=== PATIENT | female | born 1975 | race Caucasian/White ===

== ENCOUNTER 2020-05-08 02:40 | Emergency (ER) | payer MEDICAID ==
[~2020-05-08] VITALS: Ht 167.6 cm; Wt 68.0 kg
[2020-05-08 02:56] VITALS: BP_SYST 137
--- NOTE | 2020-05-08 03:09 | NUR ---
PT CAME TO ER FOR WORSENING PAIN TO RIGHT BREAST OVER THE LAST 4 DAYS. PRESENTS WITH LARGE SWOLLEN REDDENED AREA TO RIGHT BREAST ABOUT 6CM ACROSS. HOT TO TOUCH. INTACT, NO DRAINIAGE. STATES SIMILAR PROBLEM HAS HAPPENED 3 TIMES IN THE PAST APPROX 6 MOS APART. NO MEDICAL HISTORY, HYSTERCTOMY 2 YEARS AGO. AAOX3, V/S STABLE
--- NOTE | 2020-05-08 03:09 | NUR ---
Patient to ER bed 3 to gown for evaluation. Side rails up.
--- NOTE | 2020-05-08 03:23 | NUR ---
REPORT GIVEN TO TRISTEN FISHER FOR CONTINUING CARE
--- NOTE | 2020-05-08 03:25 | NUR ---
ALYCIA Epperson at bedside examining patient.
[2020-05-08] MEDS ORDERED: SULFAMETHOXAZOLE/TRIMETHOPR DS 1 TABLET PO ONE (03:30)
[2020-05-08] MEDS ORDERED: CEPHALEXIN 500 MG CAPSULE PO ONE (03:30)
[2020-05-08] MEDS ORDERED: IBUPROFEN 800 MG TABLET PO ONE (03:30)
--- NOTE | 2020-05-08 03:34 | NUR ---
PT MEDICATED PER MD ORDERS. PT TOLERATED MEDICATIONS WELL.
[2020-05-08 03:42] VITALS: BP_SYST 126
--- NOTE | 2020-05-08 03:42 | NUR ---
Patient given written and verbal discharge instructions and verbalizes understanding. ER MD discussed with patient the results and treatment provided. Patient in stable condition. ID arm band removed. Rx of IBUPROFEN, BACTRIM, KEFLEX given. Patient educated on pain management and to follow up with PMD. Pain Scale 5/10. Opportunity for questions provided and answered. Medication side effect fact sheet provided.
== END 2020-05-08 03:42 | disposition home or self-care (01) ==
LOC: SED 02:40
DX: N61.1 Abscess of the breast and nipple (principal)
CPT/HCPCS: 99284

== ENCOUNTER 2023-10-31 03:29 | Emergency (ER) | payer MEDICAID ==
[~2023-10-31] VITALS: Ht 167.6 cm; Wt 63.5 kg
[2023-10-31 04:06] VITALS: BP_SYST 117; PULSE 90; RESP 18; TEMP 97.4; O2SAT 99
[2023-10-31 05:20] VITALS: BP_SYST 120; PULSE 88; RESP 18; TEMP 97.4; O2SAT 98
== END 2023-10-31 05:20 | disposition home or self-care (01) ==
LOC: SED 03:29
DX: S63.284A Dislocation of proximal interphalangeal joint of right ring finger, initial encounter (principal); Z79.899 Other long term (current) drug therapy; X58.XXXA Exposure to other specified factors, initial encounter; Y93.89 Activity, other specified; Y92.89 Other specified places as the place of occurrence of the external cause; Y99.8 Other external cause status
CPT/HCPCS: 73140; 99284

== ENCOUNTER 2023-11-24 10:30 | Emergency (ER) | payer MEDICAID ==
[~2023-11-24] VITALS: Ht 167.6 cm; Wt 61.7 kg
[2023-11-24 11:06] VITALS: BP_SYST 141; PULSE 91; RESP 16; TEMP 98; O2SAT 100
[2023-11-24 13:42] VITALS: BP_SYST 141; PULSE 91; RESP 16; TEMP 98; O2SAT 100
== END 2023-11-24 13:44 | disposition home or self-care (01) ==
LOC: SED 10:30
DX: S63.284A Dislocation of proximal interphalangeal joint of right ring finger, initial encounter (principal); Z79.899 Other long term (current) drug therapy; X58.XXXA Exposure to other specified factors, initial encounter; Y93.89 Activity, other specified; Y92.89 Other specified places as the place of occurrence of the external cause; Y99.8 Other external cause status
CPT/HCPCS: 73140; 99284